=== PATIENT | female | born 1965 | race Caucasian/White ===

== ENCOUNTER 2018-03-09 10:20 | Emergency (ER) | payer BC ==
[2018-03-09] MEDS ORDERED: GLUCAGON 1 MG/VIAL ONE ×2 (10:44→12:04)
[2018-03-09 11:13] LABS: Absolute Lymphocytes (CBC) 1.1 K/uL (0.7-4.9); Absolute Monocytes 0.4 K/uL (0.1-1.3); Absolute Neutrophil 5.6 K/uL (1.8-8.0); Basophils % 0.5 % (0-1.3); Eosinophils % 0.9 % (0-4.4); Hematocrit 38.6 % (36.0-45.0); Lymphocytes % 14.8 % (15.3-44.8); MCH 31.9 pg (27.0-35.0); MPV 8.7 fL (7.6-11.3); Monocytes % 5.5 % (3.3-12.3); RBC Red Blood Cell Count 4.02 M/uL (3.86-4.86)
[2018-03-09 11:17] LABS: Protime INR 1.04
[2018-03-09 11:34] LABS: Albumin 4.2 g/dL (3.4-5.0); Bilirubin Direct 0.2 mg/dL (0-0.2); Bilirubin Total 0.8 mg/dL (0.2-1.0); Potassium 3.5 mmol/L (3.5-5.1); Protein, Total 7.4 g/dL (6.4-8.2)
--- NOTE | 2018-03-09 12:10 | RAD REPORT ---
EXAM DESCRIPTION: Tony Long (2 Views)03/09/2018 11:56 am CLINICAL HISTORY: Chest pain COMPARISON: September 2017 FINDINGS: The lungs appear clear of acute infiltrate. The heart is normal size IMPRESSION: No acute abnormalities displayed
[2018-03-09] MEDS ORDERED: MEPERIDINE HCL 25 MG/0.5 ML ONE ×2 (13:25→16:44)
--- NOTE | 2018-03-09 14:06 | ER ---
Nurse's Notes [facility] Name: Tiff Elizabeth Age: 52 yrs Sex: Female : 1965 Arrival Date: 03/09/2018 Time: 10:21 Bed 19 Private MD: Zana Lee T Diagnosis: Esophageal obstruction;Esophageal foreign body, chicken Presentation: 03/09 10:31 Presenting complaint: Patient states: vomiting that began after eating chicken last ss night. Pt states, "I feel like it's stuck.". Transition of care: patient was not received from another setting of care. Onset of symptoms was March 07, 2018. Risk Assessment: Do you want to hurt yourself or someone else? Patient reports no desire to harm self or others. Initial Sepsis Screen: Does the patient meet any 2 criteria? No. Patient's initial sepsis screen is negative. Does the patient have a suspected source of infection? No. Patient's initial sepsis screen is negative. Care prior to arrival: None. 10:31 Method Of Arrival: Ambulatory ss 10:31 Acuity: JASON 3 ss PERSONAL LOAN SPECIALIST: 11:23 LMP N/A - Hysterectomy em Historical: - Allergies: 10:33 NKA; ss - PMHx: 10:33 ADD/ADHD; Hypothyroidism; blood clot in left leg; ss - PSHx: 10:33 Hysterectomy; Cholecystectomy; ss - Immunization history:: Adult Immunizations up to date. - Social history:: Smoking status: Patient/guardian denies using tobacco. - Ebola Screening: : Patient denies exposure to infectious person Patient denies travel to an Ebola-affected area in the 21 days before illness onset. - Family history:: not pertinent. - Hospitalizations: : No recent hospitalization is reported. Screenin:24 Abuse screen: Denies threats or abuse. Nutritional screening: No deficits noted. em Tuberculosis screening: No symptoms or risk factors identified. Fall Risk None identified. Assessment: 10:45 General: Appears in no apparent distress. uncomfortable, Behavior is calm, cooperative. em General: reports eating chicken and felt something get stuck, became nauseated and vomiting but had little relief . Pain: Complains of pain in mid-sternal area Pain currently is 5 out of 10 on a pain scale. Quality of pain is described as pressure. Neuro: Level of Consciousness is awake, alert, obeys commands, Oriented to person, place, time, situation. Cardiovascular: Capillary refill < 3 seconds Patient's skin is warm and dry. Respiratory: Airway is patent Respiratory effort is even, unlabored, Respiratory pattern is regular, symmetrical, Breath sounds are clear bilaterally. GI: Abdomen is round non-distended, Pt is actively vomiting clear fluid, Bowel sounds present X 4 quads. Abd is soft X 4 quads. Derm: Skin is intact, Skin is pink, warm \\T\\ dry. Musculoskeletal: Range of motion: intact in all extremities. 10:53 General: The previous assessment is accurate, call light remains within reach. . ss 11:30 Reassessment: Patient appears in no apparent distress at this time. Patient and/or em family updated on plan of care and expected duration. Pain level reassessed. Patient is alert, oriented x 3, equal unlabored respirations, skin warm/dry/pink. pt belching and feels like it has slightly improved, Dr. Salazar notified. 13:00 Reassessment: Patient appears in no apparent distress at this time. Patient and/or em family updated on plan of care and expected duration. Pain level reassessed. pt reports something still in chest, medication helped a little, belching and vomiting noted, Dr. Salazar notified. 13:59 Reassessment: Patient appears in no apparent distress at this time. Patient and/or em family updated on plan of care and expected duration. Pain level reassessed. Patient is alert, oriented x 3, equal unlabored respirations, skin warm/dry/pink. Patient states feeling better. 14:09 Reassessment: reports pain is 3/10, pt continues to belch, awaiting transfer facility. em 15:30 Reassessment: Patient appears in no apparent distress at this time. Patient and/or em family updated on plan of care and expected duration. Pain level reassessed. Patient is alert, oriented x 3, equal unlabored respirations, skin warm/dry/pink. report called to EDDIE Hutson at [facility], awaiting EMS to transport pt to facility. 16:33 Reassessment: medication for nausea has not improved symptoms, pt currently vomiting in em emesis bag, about 100 cc of bile, Dr. Salazar notified, new medication orders received. 17:30 Reassessment: Patient appears in no apparent distress at this time. Patient states em feeling better. Patient states symptoms have improved. 18:00 Reassessment: Patient appears in no apparent distress at this time. EMS request pt to em be medicated with Zofran before transportation since they are on storage, Dr. Salazar notified, new medication orders received. Vital Signs: 10:33 BP 164 / 102; Pulse 97; Resp 17; Temp 97.7(TE); Pulse Ox 98% ; Weight 68.04 kg; Height ss 5 ft. 1 in. (154.94 cm); Pain 5/10; 11:23 BP 162 / 104; Pulse 88; Resp 18; Pulse Ox 100% on R/A; em 12:14 BP 162 / 99; Pulse 87; Resp 16; Pulse Ox 99% on R/A; Pain 5/10; em 14:12 BP 168 / 100; Pulse 91; Resp 18; Pulse Ox 97% on R/A; Pain 3/10; em 15:48 BP 185 / 112; Pulse 98; ss 16:00 BP 179 / 108; Pulse 79; Resp 18; Pulse Ox 99% on R/A; em 16:30 BP 168 / 111; Pulse 83; Resp 20; Pulse Ox 100% on R/A; Pain 5/10; em 17:00 BP 171 / 107; Pulse 93; Resp 18; Pulse Ox 98% on R/A; em 17:30 BP 172 / 119; Pulse 88; Resp 18; Pulse Ox 99% on R/A; em 17:58 BP 154 / 104; ss 10:33 Body Mass Index 28.34 (68.04 kg, 154.94 cm) ss 14:12 Dr. Salazar notifed of VS, no new orders received em ED Course: 10:21 Patient arrived in ED. sb2 10:22 Zana Lee MD is Private Physician. sb2 10:25 Bulmaro Salazar MD is Attending Physician. rn 10:32 Triage completed. ss 10:32 Lanre Lilly LVN is Primary Nurse. em 10:33 Arm band placed on right wrist. ss 10:45 Patient has correct armband on for positive identification. Placed in gown. Bed in low em position. Call light in reach. Side rails up X2. 10:50 Missed attempt(s): 22 gauge in right antecubital area. Bleeding controlled, band aid em applied, catheter tip intact. 11:00 Initial lab(s) drawn, by me, sent to lab. Inserted saline lock: 22 gauge in left em antecubital area, using aseptic technique. Blood collected. 11:47 XRAY Chest Pa And Lat (2 Views) In Process Unspecified. EDMS 15:40 No provider procedures requiring assistance completed. Patient transferred, IV remains em in place. 17:18 EKG done, by audiovisual aids technician. reviewed by Bulmaro Salazar MD. sm3 Administered Medications: 11:05 Drug: Glucagon 1 mg Route: IVP; Site: left antecubital; ss 12:09 Follow up: Response: No adverse reaction em 12:05 Drug: Glucagon 1 mg Route: IVP; Site: left antecubital; em 13:25 Follow up: Response: No adverse reaction em 13:30 Drug: Demerol 25 mg Route: IVP; Site: left antecubital; ss 14:35 Follow up: Response: No adverse reaction; Pain is decreased em 15:44 CANCELLED (not tolerating PO): cloNIDine 0.1 mg PO once rn 15:47 CANCELLED (hospital shortage): hydrALAZINE 5 mg IV at calculated rate once rn 15:55 Drug: Labetalol 5 mg Route: IVP; Infused Over: 2 mins; Site: left antecubital; ss 16:54 Follow up: Response: No adverse reaction; Blood pressure is unchanged em 16:16 Drug: Phenergan 12.5 mg Route: IVP; Site: left antecubital; ss 16:55 Follow up: Response: No adverse reaction; Nausea unchanged em 16:50 Drug: Demerol 25 mg Route: IVP; Site: left antecubital; em 17:52 Follow up: Response: No adverse reaction em 16:50 Drug: Phenergan 12.5 mg Route: IVP; Site: left antecubital; em 17:52 Follow up: Response: No adverse reaction; Nausea is decreased em 17:55 Drug: Labetalol 5 mg Route: IVP; Infused Over: 2 mins; Site: right antecubital; ss 18:08 Follow up: Response: No adverse reaction; Blood pressure is lowered em Outcome: 14:06 ER care complete, transfer ordered by . rn 15:40 Transferred by ground EMS to [facility], Transfer form completed. em X-rays sent w/ patient. 15:40 Condition: good 15:40 Instructed on discharge instructions, Demonstrated understanding of instructions. 18:32 Patient left the ED. em Signatures: Dispatcher [employer] Lanre Dalal, BLOCK TESTER BLOCK TESTER em Marie, MD MD eddie Chamberlain Shelby, RN RN ss Billeau, Sheri 2 Zohreh Glover sm3 Corrections: (The following items were deleted from the chart) 13:02 11:30 Reassessment: Patient appears in no apparent distress at this time. Patient em and/or family updated on plan of care and expected duration. Pain level reassessed. Patient is alert, oriented x 3, equal unlabored respirations, skin warm/dry/pink. pt belching and feels like it has slightly improved, Dr. Salazar notifed em
--- NOTE | 2018-03-09 14:06 | EDPHYS ---
Physician Documentation [facility] Name: Tiff Elizabeth Age: 52 yrs Sex: Female : 1965 Arrival Date: 03/09/2018 Time: 10:21 Bed 19 Private MD: Zana Lee T ED Physician Bulmaro Salazar HPI: 03/09 10:36 This 52 yrs old Female presents to ER via Ambulatory with complaints of rn Abdominal Pain. 10:36 The patient presents with abdominal pain in the epigastric area. Onset: The rn symptoms/episode began/occurred last night. The symptoms do not radiate. The symptoms are described as dull. Severity of pain: At its worst the pain was mild in the emergency department the pain is unchanged. The patient has not experienced similar symptoms in the past. Reports eating chicken last night, immediately after a bite felt like chicken got stuck, was eating on-bone but doesn't feel like ate a piece of bone, unable to tolerate liquids, no diarrhea. Feels it is stuck in lower chest/upper abd.. DIRECTOR STRATEGIC PLANNING: 11:23 LMP N/A - Hysterectomy em Historical: - Allergies: 10:33 NKA; ss - PMHx: 10:33 ADD/ADHD; Hypothyroidism; blood clot in left leg; ss - PSHx: 10:33 Hysterectomy; Cholecystectomy; ss - Immunization history:: Adult Immunizations up to date. - Social history:: Smoking status: Patient/guardian denies using tobacco. - Ebola Screening: : Patient denies exposure to infectious person Patient denies travel to an Ebola-affected area in the 21 days before illness onset. - Family history:: not pertinent. - Hospitalizations: : No recent hospitalization is reported. ROS: 10:36 Constitutional: Negative for fever, chills, and weight loss, Eyes: Negative for injury, rn pain, redness, and discharge, Neck: Negative for injury, pain, and swelling, Cardiovascular: Negative for chest pain, palpitations, and edema, Respiratory: Negative for shortness of breath, cough, wheezing, and pleuritic chest pain, Abdomen/GI: Negative for diarrhea, and constipation, MS/Extremity: Negative for injury and deformity, Skin: Negative for injury, rash, and discoloration, Neuro: Negative for headache, weakness, numbness, tingling, and seizure. Exam: 10:36 Constitutional: This is a well developed, well nourished patient who is awake, alert, rn and in no acute distress. Head/Face: Normocephalic, atraumatic. Abdomen/GI: Soft, non-tender, with normal bowel sounds. No distension or tympany. No guarding or rebound. No evidence of tenderness throughout. Vital Signs: 10:33 BP 164 / 102; Pulse 97; Resp 17; Temp 97.7(TE); Pulse Ox 98% ; Weight 68.04 kg; Height ss 5 ft. 1 in. (154.94 cm); Pain 5/10; 11:23 BP 162 / 104; Pulse 88; Resp 18; Pulse Ox 100% on R/A; em 12:14 BP 162 / 99; Pulse 87; Resp 16; Pulse Ox 99% on R/A; Pain 5/10; em 14:12 BP 168 / 100; Pulse 91; Resp 18; Pulse Ox 97% on R/A; Pain 3/10; em 15:48 BP 185 / 112; Pulse 98; ss 16:00 BP 179 / 108; Pulse 79; Resp 18; Pulse Ox 99% on R/A; em 16:30 BP 168 / 111; Pulse 83; Resp 20; Pulse Ox 100% on R/A; Pain 5/10; em 17:00 BP 171 / 107; Pulse 93; Resp 18; Pulse Ox 98% on R/A; em 17:30 BP 172 / 119; Pulse 88; Resp 18; Pulse Ox 99% on R/A; em 17:58 BP 154 / 104; ss 10:33 Body Mass Index 28.34 (68.04 kg, 154.94 cm) 14:12 Dr. Salazar notifed of VS, no new orders received em MDM: 10:25 Patient medically screened. rn 13:36 ED course: Pt s/p 2 doses of glucagon, still not able to tolerate fluids, will have to rn urology to [facility] because dont have GI available for endoscopy. . 14:04 Differential diagnosis: gastritis, gastroesophageal reflux disease, non-specific abd rn pain, pancreatitis, Peptic Ulcer Disease. Data reviewed: vital signs, nurses notes, lab test result(s), EKG, radiologic studies, plain films, and as a result, I will admit patient. Counseling: I had a detailed discussion with the patient and/or guardian regarding: the historical points, exam findings, and any diagnostic results supporting the discharge/admit diagnosis, lab results, radiology results, the need to transfer to another facility, [facility] does not immediately have the required specialist. ED course: Accepted for transfer to [facility] for GI/endoscopy by Dr. Yao.. 03/09 10:35 Order name: Basic Metabolic Panel rn 03/09 10:35 Order name: CBC with Diff; Complete Time: 11:17 rn 03/09 10:35 Order name: Hepatic Function; Complete Time: 11:42 rn 03/09 10:35 Order name: Lipase; Complete Time: 11:42 rn 03/09 10:35 Order name: Troponin (emerg Dept Use Only); Complete Time: 11:42 rn 03/09 10:35 Order name: PT-INR; Complete Time: 11:42 rn 03/09 10:35 Order name: XRAY Chest Pa And Lat (2 Views); Complete Time: 12:11 rn 03/09 10:35 Order name: Ptt, Activated; Complete Time: 11:42 rn 03/09 10:36 Order name: Basic Metabolic Panel; Complete Time: 11:42 EDMS 03/09 10:35 Order name: IV Saline Lock; Complete Time: 11:05 rn 03/09 10:35 Order name: Labs collected and sent; Complete Time: 11: rn 03/09 16:43 Order name: EKG; Complete Time: 16:43 ag Administered Medications: 11:05 Drug: Glucagon 1 mg Route: IVP; Site: left antecubital; ss 12:09 Follow up: Response: No adverse reaction em 12:05 Drug: Glucagon 1 mg Route: IVP; Site: left antecubital; em 13:25 Follow up: Response: No adverse reaction em 13:30 Drug: Demerol 25 mg Route: IVP; Site: left antecubital; ss 14:35 Follow up: Response: No adverse reaction; Pain is decreased em 15:44 CANCELLED (not tolerating PO): cloNIDine 0.1 mg PO once rn 15:47 CANCELLED (hospital shortage): hydrALAZINE 5 mg IV at calculated rate once rn 15:55 Drug: Labetalol 5 mg Route: IVP; Infused Over: 2 mins; Site: left antecubital; ss 16:54 Follow up: Response: No adverse reaction; Blood pressure is unchanged em 16:16 Drug: Phenergan 12.5 mg Route: IVP; Site: left antecubital; ss 16:55 Follow up: Response: No adverse reaction; Nausea unchanged em 16:50 Drug: Demerol 25 mg Route: IVP; Site: left antecubital; em 17:52 Follow up: Response: No adverse reaction em 16:50 Drug: Phenergan 12.5 mg Route: IVP; Site: left antecubital; em 17:52 Follow up: Response: No adverse reaction; Nausea is decreased em 17:55 Drug: Labetalol 5 mg Route: IVP; Infused Over: 2 mins; Site: right antecubital; ss 18:08 Follow up: Response: No adverse reaction; Blood pressure is lowered em Disposition: 03/09/18 14:06 Transfer ordered to [facility]. Diagnosis are Esophageal obstruction, Esophageal foreign body, chicken. - Reason for transfer: Higher level of care. - Accepting physician is Dr. Yao. - Condition is Stable. - Problem is new. - Symptoms are unchanged. Signatures: Dispatcher [employer] EDCA Lanre Lilly, LEAD PYTHON DEVELOPER LEAD PYTHON DEVELOPER Bulmaro Haddad MD MD rn Smirch, Shelby, RN RN ss Corrections: (The following items were deleted from the chart) 15:44 15:44 cloNIDine 0.1 mg PO once ordered. rn rn 15:47 15:44 hydrALAZINE 5 mg IV at calculated rate once ordered. rn rn 18:32 14:06 03/09/2018 14:06 Transfer ordered to [facility]. Diagnosis is em Esophageal obstruction; Esophageal foreign body, chicken. Reason for transfer: Higher level of care. Accepting physician is Dr. Yao. Condition is Stable. Problem is new. Symptoms are unchanged. rn
[2018-03-09] MEDS ORDERED: LABETALOL HCL 100 MG/20 ML ONE (15:52)
[2018-03-09] MEDS ORDERED: PROMETHAZINE 25 MG/ML VIAL ONE ×2 (16:03→16:44)
[2018-03-09] MEDS ORDERED: ONDANSETRON 4 MG/2 ML VIAL ONE (18:04)
[2018-03-09 18:37] VITALS: TEMP 97.7
[2018-03-09 18:46] VITALS: O2SAT 99
[2018-03-09 18:47] VITALS: BP 154/104
--- NOTE | 2018-03-09 23:00 | EKG ---
Test Date: 2018-03-09 Test Time: 16:45:48 Environmental Professional: CHRISTINA MEASUREMENT RESULTS: Intervals: Rate: 82 MT: 170 QRSD: 96 QT: 394 QTc: 460 [place]: P: 44 MT: 170 QRS: -16 T: 35 INTERPRETIVE STATEMENTS: Normal sinus rhythm Incomplete right bundle branch block Moderate voltage criteria for LVH, may be normal variant Borderline ECG Compared to ECG 10/05/2017 11:36:52 Incomplete right bundle-branch block now present Left ventricular hypertrophy now present Electronically Signed On 03-09-18 23:00:28 CDT by Octaviano Dhaliwal
== END 2018-03-09 18:32 | disposition short-term general hospital (02) ==
LOC: ER 10:20
DX: K22.2 Esophageal obstruction (principal); T18.0XXA Foreign body in mouth, initial encounter; E03.9 Hypothyroidism, unspecified; X58.XXXA Exposure to other specified factors, initial encounter; Y93.9 Activity, unspecified; Y92.9 Unspecified place or not applicable; Y99.9 Unspecified external cause status
CPT/HCPCS: 36415; 71046; 80048; 80076; 83690; 84484; 85025; 85610; 85730; 93005; 99285; J1610; J2175; J2405; J2550